=== PATIENT | female | born 2005 | race Caucasian/White ===

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

== ENCOUNTER 2023-02-17 16:49 | Emergency (ER) | payer BC ==
[2023-02-17] MEDS ORDERED: TYLENOL EXTRA STRENGTH 500 MG PO PRN (17:22)
[2023-02-17] MEDS ORDERED: TYLENOL EXTRA STRENGTH 500 MG ONE (17:25)
[2023-02-17 17:29] LABS: Appearance Clear (Clear); Bacteria Rare /HPF (None Seen); Bilirubin Negative (Negative); Blood Negative (Negative); Epithelial Cells Few /HPF (None Seen); Glucose, Urine Negative (Negative); Hyaline Casts NONE SEEN /LPF (0-2); Ketones Trace (Negative); Leukocyte Esterase Small (Negative); Nitrite Negative (Negative); Protein,Urine Dip 30 (Negative); RBC 0-2 /HPF (0-5); Specific Gravity 1.025 (1.005-1.030)
[2023-02-17 17:38] LABS: ADD URINE CULTURE? YES (NO)
[2023-02-17 17:45] LABS: Group A Strep NOT DETECTED (NEGATIVE)
--- NOTE | 2023-02-17 17:52 | ERPHSYRPT ---
- History of Present Illness Time Seen by Provider: 02/17/23 17:47 Source: patient Exam Limitations: no limitations Patient Subjective Stated Complaint: Fever Triage Nursing Assessment: Patient ambulated back to ED and transferred self to bed. Patient A+O X3. Patient's skin flushed, warm and dry. Patient complains of fever as high as 104.2 last night. Patient complains of fever, headache and sore throat for several days. Patient complains of head and throat pain 5/10. Patient is currently 7 weeks . Patient's throat noted to bed red with blisters noted. Physician History: Patient is a 18-year-old female currently 7 weeks presents to our ED with headache sore throat and fever x1 day. Patient took Tylenol today at 130. She dose 500 mg with some improvement. Patient rates her sore throat at 5 out of 10. No other symptomology. No abdominal pain. No pelvic pain. No vaginal discharge. No trauma. Symptoms are mild to moderate in intensity. No specific worsening improving factors. Patient voices no other complaints or concerns at this time. No neck pain no photophobia no meningeal signs Portions of this note were created with voice recognition technology. There may be grammatical, spelling, punctuation or sound alike errors Timing/Duration: today Severity: moderate Modifying Factors: Improves With: nothing Associated Symptoms: headaches Allergies/Adverse Reactions: amoxicillin Allergy (Verified 02/17/23 17:54) Home Medications: Vits W-Ca,Fe,FA(<1Mg) [] 1 each PO DAILY 04/08/21 [History] Hx Tetanus, Diphtheria Vaccination/Date Given: No Hx Influenza Vaccination/Date Given: No Hx Pneumococcal Vaccination/Date Given: No Immunizations Up to Date: Yes Travel Risk - International Travel Have you traveled outside of the country in past 3 weeks: No - Coronavirus Screening Are you exhibiting any of the following symptoms?: Yes Symptoms: Fever, Headaches/Body Aches/Fatigue Close contact with a COVID-19 positive Pt in past 14-21 Days: No - Vaccine Status Have you recieved a Covid-19 vaccination: Yes Front Elevator Operator: Unknown - Vaccination Dates Dates if Unknown: na - Review of Systems Constitutional: No Symptoms, No Fever, No Chills Eyes: No Symptoms Ears, Nose, & Throat: No Symptoms Respiratory: No Symptoms, No Cough, No Dyspnea Cardiac: No Symptoms, No Chest Pain, No Edema, No Syncope Abdominal/Gastrointestinal: No Symptoms, No Abdominal Pain, No Nausea, No Vomiting, No Diarrhea Genitourinary Symptoms: No Symptoms, No Dysuria Musculoskeletal: No Symptoms, No Back Pain, No Neck Pain Skin: No Symptoms, No Rash Neurological: No Symptoms, No Dizziness, No Focal Weakness, No Sensory Changes Psychological: No Symptoms Endocrine: No Symptoms Hematologic/Lymphatic: No Symptoms Immunological/Allergic: No Symptoms All Other Systems: Reviewed and Negative - Past Medical History Pertinent Past Medical History: Yes Neurological History: No Pertinent History ENT History: No Pertinent History Cardiac History: No Pertinent History Respiratory History: No Pertinent History Endocrine Medical History: No Pertinent History Musculoskeletal History: No Pertinent History GI Medical History: No Pertinent History History: No Pertinent History Psycho-Social History: No Pertinent History Female Reproductive Disorders: Other Other Medical History: 1 ovary--has a couple of cysts on it, other ovary disenegrated at 3 months old - Past Surgical History Past Surgical History: Yes Neuro Surgical History: No Pertinent History Cardiac: No Pertinent History Respiratory: No Pertinent History Gastrointestinal: No Pertinent History Genitourinary: No Pertinent History Musculoskeletal: No Pertinent History Female Surgical History: Other Other Surgical History: removed cyst on ovary as a baby - Social History Smoking Status: Never smoker Exposure to second hand smoke: No Drug Use: none Patient Lives Alone: No Significant Family History: no pertinent family hx - Female History Hx Last Menstrual Period: End december Hx Now: Yes Gestational Age: 7 weeks - Nursing Vital Signs Nursing Vital Signs: Initial Vital Signs Temperature 102.8 F 02/17/23 17:12 Pulse Rate 102 H 02/17/23 17:12 Respiratory Rate 17 02/17/23 17:12 Blood Pressure 98/76 02/17/23 17:12 O2 Sat by Pulse Oximetry 99 02/17/23 17:12 Pain Scale Pain Intensity 2 - Physical Exam General Appearance: no apparent distress, alert Eye Exam: PERRL/EOMI, eyes nml inspection Ears, Nose, Throat Exam: normal ENT inspection, TMs normal, moist mucous membranes, other (Erythematous oropharynx.) Neck Exam: normal inspection, non-tender, supple, full range of motion Respiratory Exam: normal breath sounds, lungs clear, No respiratory distress Cardiovascular Exam: regular rate/rhythm, normal heart sounds, normal peripheral pulses Gastrointestinal/Abdomen Exam: soft, normal bowel sounds, No tenderness, No mass Back Exam: normal inspection, normal range of motion, No CVA tenderness, No vertebral tenderness Extremity Exam: normal inspection, normal range of motion, pelvis stable Neurologic Exam: alert, oriented x 3, cooperative, normal mood/affect, nml cerebellar function, nml station & gait, sensation nml, No motor deficits Skin Exam: normal color, warm, dry, No rash Lymphatic Exam: No adenopathy SpO2 Interpretation: normal SpO2: 99 O2 Delivery: Room Air - Course Nursing assessment & vital signs reviewed: Yes Ordered Tests: Active Orders 24 hr Category Date Time Status CULTURE,URINE Stat Lab 02/17/23 17:07 Received UA W/RFX UR CULTURE Stat Lab 02/17/23 17:07 Completed Medication Summary Generic Name Dose Route Start Last Admin Trade Name Freq PRN Reason Stop Dose Admin Acetaminophen 1,000 mg 02/17/23 17:22 02/17/23 17:27 Acetaminophen 500 Mg Tablet PO 03/19/23 17:21 1,000 mg Q4H PRN PRN Administration HEADACHE Discontinued Medications Generic Name Dose Route Start Last Admin Trade Name Freq PRN Reason Stop Dose Admin Nitrofurantoin Macrocrystals 100 mg 02/17/23 19:35 02/17/23 19:39 Nitrofurantoin Macro 100 Mg Capsule PO 02/17/23 19:36 100 mg STAT ONE Administration Nitrofurantoin Macrocrystals Confirm 02/17/23 19:38 Nitrofurantoin Macro 100 Mg Capsule Administered 02/17/23 19:39 Dose 100 mg .ROUTE .[facility] Lab/Rad Data: Laboratory Results 02/17/23 02/17/23 Range/Units 17:10 17:07 Urine Color Yellow (Yellow) Urine Appearance Clear (Clear) Urine pH 7.0 (4.6-8.0) Ur Specific [place] 1.025 (1.005-1.030) Urine Protein 30 (Negative) Urine Glucose (UA) Negative (Negative) mg/dL Urine Ketones Trace A (Negative) Urine Blood Negative (Negative) Urine Nitrite Negative (Negative) Urine Bilirubin Negative (Negative) Urine Urobilinogen 1.0 A (0.2) mg/dL Ur Leukocyte Esterase Small A (Negative) U Hyaline Cast (Auto) NONE SEEN (0-2) /LPF Urine Microscopic RBC 0-2 (0-5) /HPF Urine Microscopic WBC 6-10 A (0-5) /HPF Ur Epithelial Cells Few (None Seen) /HPF Urine Bacteria Rare A (None Seen) /HPF Urine Culture Reflexed YES (NO) Influenza Type A Ag NEGATIVE (NEGATIVE) Influenza Type B Ag NEGATIVE (NEGATIVE) RSV (PCR) NEGATIVE (NEGATIVE) SARS-CoV-2 (PCR) NEGATIVE (NEGATIVE) Group A Strep Antibody NOT DETECTED (NEGATIVE) - Progress Progress: improved Progress Note: Patient a 18-year-old female presents emergency department for evaluation of a fever. Patient is 7 weeks . Patient has a sore throat. No nausea or vomiting. Patient has no complications or complaints regarding her . No abdominal pain or vaginal discharge. No back pain. Rapid strep negative. COVID flu influenza negative. Urinalysis reveals a urinary tract infection. Patient received a dose of Macrobid in our ED. I spoke with Dr. Greco patient's [facility] physician at 7:45 PM. agrees with plan of care and disposition. Patient agrees to contact her primary care physician and/or within 48 hours for reevaluation. She voices no other complaints or concerns at this time. A prescription for Macrobid was forwarded to patient's pharmacy. Portions of this note were created with voice recognition technology. There may be grammatical, spelling, punctuation or sound alike errors Complexity of problem addressed is moderate acute complicated No critical care time Complexity data reviewed and analyzed is extensive. Test ordered test reviewed and analyzed. Clinical correlation made between the findings and history and physical examination. Plan of care and management discussed with patient's [facility] physician Dr. Greco. Risk of complication and or risk of morbidity/mortality of patient management is moderate. A prescription for Macrobid was forwarded to patient's pharmacy. Patient will be discharged home. Vital stable. Time spent to discharge patient is approximately 15 minutes. Plan of care established for shared decision making. No social determinants of health present to impede follow-up. Patient voices no other complaints or concerns at this time. Patient sore throat and fever is likely a viral pharyngitis. Portions of this note were created with voice recognition technology. There may be grammatical, spelling, punctuation or sound alike errors 02/17/23 19:57 Counseled pt/family regarding: lab results, diagnosis, need for follow-up - Departure Departure Disposition: Home Clinical Impression: UTI (urinary tract infection), Sore throat (viral) Condition: Stable Critical Care Time: No Referrals: TERRENCE DRAPER SENIOR INSIGHT MANAGER [Primary Care Provider] - Follow up/PCP as directed Additional Instructions: Discharge/Care Plan LEROY MUNSON was seen on 02/17/23 in the Emergency Room. The patient was counseled regarding Diagnosis,Lab results, Imaging studies, need for follow up and when to return to the Emergency Room. Prescriptions given: Discharge Note I have spoken with the patient and/or caregivers. I have explained the patient's condition, diagnosis and treatment plan based on the information available to me at this time. I have answered the patient's and/or caregiver's questions and addressed any concerns. The patient and/or caregivers have as good understanding of the patient's diagnosis, condition and treatment plan as can be expected at this point. The vital signs have been stable. The patient's condition is stable and appropriate for discharge from the emergency department. The patient will pursue further outpatient evaluation with the primary care physician or other designated or consulting physician as outlined in the discharge instructions. The patient and/or caregivers are agreeable to this plan of care and follow-up instructions have been explained in detail. The patient and/or caregivers have received these instruction. The patient/and or caregivers are aware that any significant change in condition or worsening of symptoms should prompt an immediate return to this or the closest emergency department or call 911. Prescriptions: Nitrofurantoin Macro 100 mg [Macrobid 100MG Capsule] 100 mg PO BID 7 Days #14 cap
[2023-02-17 17:58] LABS: INFLUENZA A NEGATIVE (NEGATIVE); INFLUENZA B NEGATIVE (NEGATIVE); RESPIRATORY SYNCTIAL VIRUS NEGATIVE (NEGATIVE); SARS-CoV-2 Xpert Express NEGATIVE (NEGATIVE)
[2023-02-17] MEDS ORDERED: Macrobid 100MG Capsule PO ONE (19:35)
[2023-02-17] MEDS ORDERED: Macrobid 100MG Capsule ONE (19:38)
[2023-02-17 19:49] VITALS: BP 102/59; PULSE 84; RESP 18; TEMP 98.9
[2023-02-17 19:53] VITALS: O2SAT 99
== END 2023-02-17 20:02 | disposition home or self-care (01) ==
LOC: ED 16:49
DX: O23.41 Unspecified infection of urinary tract in pregnancy, first trimester (principal); N39.0 Urinary tract infection, site not specified; Z3A.01 Less than 8 weeks gestation of pregnancy; J02.9 Acute pharyngitis, unspecified; R51.9 Headache, unspecified; R50.9 Fever, unspecified
CPT/HCPCS: 0241U; 81001; 87086; 87651; 99283; A9270-GY

== ENCOUNTER 2025-04-03 16:59 | Emergency (ER) | payer BC ==
[2025-04-03 17:22] VITALS: RESP 14; TEMP 97
[2025-04-03 17:23] VITALS: O2SAT 98
[2025-04-03 17:46] LABS: Glucose, Urine Negative (Negative); Protein,Urine Dip Negative (Negative); RBC 0-2 /HPF (0-5)
--- NOTE | 2025-04-03 17:51 | ERPHSYRPT ---
- History of Present Illness Time Seen by Provider: 04/03/25 17:00 Source: patient Exam Limitations: no limitations Patient Subjective Stated Complaint: patient states she had a D&C done january 28, x couple weeks patient states feet and arms have been going numb, patient states she thought maybe she has uti Triage Nursing Assessment: patient presents to ed via private vehicle, patient able to ambulate into ed without complication, alert and oriented x 4, skin p/w/d, patient denies sob/chest pain, patient states she has had decreased urine output here recently, patient's urine dark pat and cloudy, denies abdominal pain/tenderness, patient denies blurry vision/lightheadedness at this time Physician History: Patient comes emergency room due to urinary symptoms going on for the past couple weeks. Denies any back pain but complains ofUrinary symptomsDysuria and increased urination and frequency. Denies any fever chills denies any Back pain no vomiting no diarrhea Timing/Duration: today Activites at Onset: none Severity of Pain-Max: none Severity of Pain-Current: none Prior abdominal problems: UTI Modifying Factors: Improves With: urinating. Worsens With: vomiting Associated Symptoms: dysuria, polyuria, urinary frequency, No nausea, No vomiting Allergies/Adverse Reactions: amoxicillin Allergy (Verified 04/03/25 17:15) Hx Tetanus, Diphtheria Vaccination/Date Given: Yes Hx Influenza Vaccination/Date Given: Yes Hx Pneumococcal Vaccination/Date Given: No Travel Risk - International Travel Have you traveled outside of the country in past 3 weeks: No - Emerging Infectious Disease Are you exhibiting symptoms associated with any current EIDs: No Symptoms: Abdominal Pain - Review of Systems Constitutional: No Fever, No Chills Respiratory: No Cough, No Dyspnea Cardiac: No Chest Pain, No Edema, No Syncope Genitourinary Symptoms: Frequency, Urgency - Past Medical History Pertinent Past Medical History: Yes Neurological History: No Pertinent History ENT History: No Pertinent History Cardiac History: No Pertinent History Respiratory History: No Pertinent History Endocrine Medical History: No Pertinent History Musculoskeletal History: No Pertinent History GI Medical History: No Pertinent History History: No Pertinent History Psycho-Social History: Anxiety, Depression Female Reproductive Disorders: Other Other Medical History: 1 ovary--has a couple of cysts on it, other ovary disenegrated at 3 months old - Past Surgical History Past Surgical History: Yes Neuro Surgical History: No Pertinent History Cardiac: No Pertinent History Respiratory: No Pertinent History Gastrointestinal: No Pertinent History Genitourinary: No Pertinent History Musculoskeletal: No Pertinent History Female Surgical History: Dilation & Curettage, Other Other Surgical History: removed cyst on ovary as a baby Significant Family History: no pertinent family hx - Female History Hx Last Menstrual Period: 12/11/24 Hx Now: No - Social History Smoking Status: Never smoker Exposure to second hand smoke: No Drug Use: none - Social Determinants of Health Will the patient participate in the screening: Yes Do you worry about a steady place to live?: No Do you have any problems with any of the following?: No known problems In the past 12 months,have you had to go without utilities?: No Transportation Issues: No Has anyone in your support network made you feel unsafe?: No Have you or anyone in your house had to go w/o enough food: No - Nursing Vital Signs Nursing Vital Signs: Initial Vital Signs Temperature 97 F 04/03/25 16:59 Pulse Rate 68 04/03/25 16:59 Respiratory Rate 14 04/03/25 16:59 Blood Pressure 133/78 04/03/25 16:59 O2 Sat by Pulse Oximetry 97 04/03/25 16:59 Pain Scale Pain Intensity 0 - Physical Exam General Appearance: no apparent distress, alert Respiratory Exam: normal breath sounds, lungs clear, No respiratory distress Cardiovascular Exam: regular rate/rhythm, normal heart sounds, normal peripheral pulses Gastrointestinal/Abdomen Exam: soft, No tenderness, No mass Back Exam: normal inspection, normal range of motion, No CVA tenderness, No vertebral tenderness Neurologic Exam: alert, oriented x 3, cooperative, field reporter II-XII nml as tested, normal mood/affect, sensation nml, No motor deficits SpO2: 98 Ordered Tests: Active Orders 24 hr Category Date Time Status UA W/RFX UR CULTURE Stat Lab 04/03/25 17:26 Completed Lab/Rad Data: Laboratory Results 04/03/25 Range/Units 17:26 Urine Color Yellow (Yellow) Urine Appearance Turbid A (Clear) Urine pH 8.0 (4.6-8.0) Ur Specific [place] 1.020 (1.005-1.030) Urine Protein Negative (Negative) Urine Glucose (UA) Negative (Negative) mg/dL Urine Ketones Negative (Negative) Urine Blood Negative (Negative) Urine Nitrite Negative (Negative) Urine Bilirubin Negative (Negative) Urine Urobilinogen 1.0 A (0.2) mg/dL Ur Leukocyte Esterase Small A (Negative) U Hyaline Cast (Auto) NONE SEEN (0-2) /LPF Urine Microscopic RBC 0-2 (0-5) /HPF Urine Microscopic WBC 3-5 (0-5) /HPF Ur Epithelial Cells Few (None Seen) /HPF Urine Bacteria None Seen (None Seen) /HPF Urine Culture Reflexed NO (NO) - Progress Progress Note: 04/03/25 17:57 Patient tested negative for UTI on a UA will be discharged advised follow-up with primary care for further evaluation and management. Also advised follow-up with her surgeon - Departure Departure Disposition: Home Clinical Impression: Dysuria Condition: Good Critical Care Time: No Referrals: TERRENCE DRAPER NP [Primary Care Provider, UNKNOWN] - Follow up/PCP as directed Instructions: Urinary tract infection in adults - ED discharge instructions
[2025-04-03 18:07] VITALS: BP 104/69; PULSE 78
== END 2025-04-03 18:07 | disposition home or self-care (01) ==
LOC: ED 16:59
DX: R30.0 Dysuria (principal); R35.0 Frequency of micturition

== ENCOUNTER 2025-04-18 12:42 | Emergency (ER) | payer BC, OTHER ==
[2025-04-18 12:59] VITALS: TEMP 97.9
[2025-04-18 13:47] LABS: BASOPHIL % 0.5 % (0.1-1.2); Basophil (Absolute #) 0.02 x10^3/uL (0.01-0.08); Eosinophil (Absolute #) 0.05 x10^3/uL (0.04-0.36); Hematocrit 36.2 % (34.1-44.9); Hemoglobin 12.1 g/dL (11.2-15.7); IMMATURE GRAN # 0.01 x10^3u/L (0.001-0.031); IMMATURE GRAN % 0.3 % (0.001-0.429); Lymphocyte (Absolute #) 1.12 x10^3/uL (1.18-3.74); Mean Corpuscular Hemoglobin 29.7 pg (25.6-32.2); Mean Corpuscular Hgb Concent. 33.4 g/dL (32.2-35.5); Monocyte (Absolute #) 0.41 x10^3/uL (0.24-0.86); NUCLEATED RBC # 0.00 x10^3u/L (0.00-0.012); NUCLEATED RBC % 0.0 % (0.00-0.2); Platelet Count 139 x10^3/uL (182-369); Red Blood Count 4.07 x10^6/uL (3.93-5.22); White Blood Count 4.0 x10^3/uL (3.98-10.04)
[2025-04-18 14:03] LABS: Calcium 8.6 mg/dL (8.4-10.2); Carbon Dioxide 21.0 mmol/L (22-30); Creatinine 1 0.57 mg/dL (0.52-1.04); EST GLOMERULAR FILTRATION RATE 131.7 ML/MIN; Glucose 99.0 mg/dL (74-106); HCG SERUM TEST NEGATIVE (NEGATIVE); INR 1.01 (0.8-3.0); PROTIME 11.3 SECONDS (9.4-12.5); PTT 24.4 SECONDS (25.1-36.5); Potassium 3.6 mmol/L (3.5-5.1); SGOT/AST 21.0 U/L (14-36); SGPT/ALT 14.0 U/L (0-35); Total Protein 7.4 g/dL (6.3-8.2)
--- NOTE | 2025-04-18 15:13 | ERPHSYRPT ---
- History of Present Illness Time Seen by Provider: 04/18/25 13:07 Source: patient Patient Subjective Stated Complaint: pt reports having a D&C in January and this is her first period since then and she started it a couple of days ago and it was very light and then last night she reports going through 20-30 tampons and pads throughout the night, pt called Dr. Greco and he told her to come to the ER for an US Triage Nursing Assessment: Pt brought self to the ER, vitals wnl, rates pain as 4/10, pulses normal skin n/w/d, denies chest pain, no SOB, reports changing tampon approx every 20 minutes Physician History: This is a 20-year-old female who states that she began having very heavy vaginal bleeding last night soaking through 6 pads since this morning. No shortness of breath, dizziness, weakness. Patient denies any trauma or injury. No recent . Patient denies any similar history in the past. No chest pain, shortness of breath, abdominal pain, flank pain, dysuria, hematuria. Patient sent by her OB Dr. Greco Allergies/Adverse Reactions: amoxicillin Allergy (Verified 04/18/25 12:59) Hx Tetanus, Diphtheria Vaccination/Date Given: Yes Hx Influenza Vaccination/Date Given: Yes Hx Pneumococcal Vaccination/Date Given: No Travel Risk - International Travel Have you traveled outside of the country in past 3 weeks: No - Emerging Infectious Disease Are you exhibiting symptoms associated with any current EIDs: No Symptoms: Abdominal Pain - Review of Systems All Other Systems: Reviewed and Negative (As per HPI otherwise negative) - Past Medical History Pertinent Past Medical History: Yes Neurological History: No Pertinent History ENT History: No Pertinent History Cardiac History: No Pertinent History Respiratory History: No Pertinent History Endocrine Medical History: No Pertinent History Musculoskeletal History: No Pertinent History GI Medical History: No Pertinent History History: No Pertinent History Psycho-Social History: Anxiety, Depression Female Reproductive Disorders: Other Other Medical History: 1 ovary--has a couple of cysts on it, other ovary disenegrated at 3 months old - Past Surgical History Past Surgical History: Yes Neuro Surgical History: No Pertinent History Cardiac: No Pertinent History Respiratory: No Pertinent History Gastrointestinal: No Pertinent History Genitourinary: No Pertinent History Musculoskeletal: No Pertinent History Female Surgical History: Dilation & Curettage, Other Other Surgical History: removed cyst on ovary as a baby Significant Family History: no pertinent family hx - Female History Hx Last Menstrual Period: now Hx Now: No - Social History Smoking Status: Never smoker Exposure to second hand smoke: No Drug Use: none - Social Determinants of Health Will the patient participate in the screening: Yes Do you worry about a steady place to live?: No Do you have any problems with any of the following?: No known problems In the past 12 months,have you had to go without utilities?: No Transportation Issues: No Has anyone in your support network made you feel unsafe?: No Have you or anyone in your house had to go w/o enough food: No - Nursing Vital Signs Nursing Vital Signs: Initial Vital Signs Temperature 97.9 F 04/18/25 12:53 Pulse Rate 72 04/18/25 12:53 Blood Pressure 117/75 04/18/25 12:53 O2 Sat by Pulse Oximetry 100 04/18/25 12:53 Pain Scale Pain Intensity 0 - Physical Exam SpO2: 98 Comments: 04/18/25 15:08 General: Well-nourished well-developed. No apparent distress. HEENT: Normocephalic atraumatic no obvious facial or neck deformity or injury. Neck: Supple. No deformity or mass noted. CV: RRR NL Perfusion. No edema Resp: No Respiratory distress or adventitious breath sounds Abd: ND SNT MSK: No deformity or TTP Neuro: Alert and [place] x4. No gross focal neurologic changes Psych: No SI, HI or grave disability Ordered Tests: Active Orders 24 hr Category Date Time Status CBC W DIFF Stat Lab 04/18/25 13:40 Completed CMP Stat Lab 04/18/25 13:40 Completed HCG QUALITATIVE, SERUM Stat Lab 04/18/25 13:40 Completed PT INR [PROTIME WITH INR] Stat Lab 04/18/25 13:40 Completed PTT Stat Lab 04/18/25 13:40 Completed Lab/Rad Data: Laboratory Result Diagrams 04/18/25 13:40 04/18/25 13:40 Laboratory Results 04/18/25 04/18/25 04/18/25 Range/Units 13:40 13:40 13:40 WBC (3.98-10.04) x10^3/uL RBC (3.93-5.22) x10^6/uL Hgb (11.2-15.7) g/dL Hct (34.1-44.9) % MCV (79.4-94.8) fL MCH (25.6-32.2) pg MCHC (32.2-35.5) g/dL RDW (11.7-14.4) % Plt Count (182-369) x10^3/uL MPV (9.4-12.3) fL Gran % (34.0-71.1) % Immature Gran % (Auto) (0.001-0.429) % Nucleat RBC Rel Count (0.00-0.2) % Eos # (Auto) (0.04-0.36) x10^3/uL Immature Gran # (Auto) (0.001-0.031) x10^3u/L Absolute Lymphs (auto) (1.18-3.74) x10^3/uL Absolute Monos (auto) (0.24-0.86) x10^3/uL Absolute Nucleated RBC (0.00-0.012) x10^3u/L Lymphocytes % (19.3-51.7) % Monocytes % (4.7-12.5) % Eosinophils % (0.7-5.8) % Basophils % (0.1-1.2) % Absolute Granulocytes (1.56-6.13) x10^3/uL Basophils # (0.01-0.08) x10^3/uL PT 11.3 (9.4-12.5) SECONDS INR 1.01 (0.8-3.0) APTT 24.4 L (25.1-36.5) SECONDS Sodium 136 (135-145) mmol/L Potassium 3.6 (3.5-5.1) mmol/L Chloride 106 (98-107) mmol/L Carbon Dioxide 21 L (22-30) mmol/L Anion Gap 12.6 (5-15) MEQ/L BUN 10 (7-17) mg/dL Creatinine 0.57 (0.52-1.04) mg/dL Estimated GFR 131.7 ML/MIN Glucose 99 (74-106) mg/dL Calcium 8.6 (8.4-10.2) mg/dL Total Bilirubin 0.50 (0.2-1.3) mg/dL AST 21 (14-36) U/L ALT 14 (0-35) U/L Alkaline Phosphatase 42 (38-126) U/L Serum Total Protein 7.4 (6.3-8.2) g/dL Albumin 4.4 (3.5-5.0) g/dL Serum HCG, Qual NEGATIVE (NEGATIVE) 04/18/25 Range/Units 13:40 WBC 4.0 (3.98-10.04) x10^3/uL RBC 4.07 (3.93-5.22) x10^6/uL Hgb 12.1 (11.2-15.7) g/dL Hct 36.2 (34.1-44.9) % MCV 88.9 (79.4-94.8) fL MCH 29.7 (25.6-32.2) pg MCHC 33.4 (32.2-35.5) g/dL RDW 12.8 (11.7-14.4) % Plt Count 139 L (182-369) x10^3/uL MPV 12.9 H (9.4-12.3) fL Gran % 59.6 (34.0-71.1) % Immature Gran % (Auto) 0.3 (0.001-0.429) % Nucleat RBC Rel Count 0.0 (0.00-0.2) % Eos # (Auto) 0.05 (0.04-0.36) x10^3/uL Immature Gran # (Auto) 0.01 (0.001-0.031) x10^3u/L Absolute Lymphs (auto) 1.12 L (1.18-3.74) x10^3/uL Absolute Monos (auto) 0.41 (0.24-0.86) x10^3/uL Absolute Nucleated RBC 0.00 (0.00-0.012) x10^3u/L Lymphocytes % 28.0 (19.3-51.7) % Monocytes % 10.3 (4.7-12.5) % Eosinophils % 1.3 (0.7-5.8) % Basophils % 0.5 (0.1-1.2) % Absolute Granulocytes 2.39 (1.56-6.13) x10^3/uL Basophils # 0.02 (0.01-0.08) x10^3/uL PT (9.4-12.5) SECONDS INR (0.8-3.0) APTT (25.1-36.5) SECONDS Sodium (135-145) mmol/L Potassium (3.5-5.1) mmol/L Chloride (98-107) mmol/L Carbon Dioxide (22-30) mmol/L Anion Gap (5-15) MEQ/L BUN (7-17) mg/dL Creatinine (0.52-1.04) mg/dL Estimated GFR ML/MIN Glucose (74-106) mg/dL Calcium (8.4-10.2) mg/dL Total Bilirubin (0.2-1.3) mg/dL AST (14-36) U/L ALT (0-35) U/L Alkaline Phosphatase (38-126) U/L Serum Total Protein (6.3-8.2) g/dL Albumin (3.5-5.0) g/dL Serum HCG, Qual (NEGATIVE) - Progress Progress Note: 04/18/25 15:10 Discussed with patient's SSRS REPORT DEVELOPER Dr. Greco who states patient well-known to him. She had amenorrhea and was being worked up for dysfunctional uterine bleeding in March. She had laboratory studies and outpatient ultrasound which she is failed to do and not showing up for her appointments. He recommends TXA 1300 mg 3 times daily x 5 days. First dose will be given in the emergency department. He recommends she follow-up with her ultrasound as outpatient. He recommends patient to follow-up with himself as outpatient. The patient's condition was discussed with themselves and/or family members in great detail. Precautions are given and need to return or call 911 immediately for any changes or worsening are discussed. Instructions on patient's condition and noting that conditions can change or worsen and that diagnosis are presumptive and can evolve are discussed. All questions were answered. All concerns addressed at this time - Departure Departure Disposition: Home Clinical Impression: Dysfunctional uterine bleeding Condition: Good Critical Care Time: No Referrals: BHAVNA GRECO DO [Primary Care Provider, OBSTETRICS-GYNECOLOGY] - Follow up with PCP 1 day Referral Note: Follow-up in the morning. Get your ultrasound scheduled and completed. Get your lab work ordered by Dr. Greco completed as well Instructions: Heavy Periods (DC) Additional Instructions: You have been evaluated for an emergency medical condition. At this time, given the current history and events presented, the examination conducted and any possible testing you may have had, you have been given a presumptive diagnosis based on the current information is obtained. Your discharge diagnosis is presumptive and not necessarily definitive. Medical conditions present in various stages very often without all the symptoms or findings described in medical literature. Other symptoms, concerns or conditions may arise and your diagnoses may evolve or change and/or your condition could potentially worsen after the time of disposition or discharge. You have been given a presumptive diagnosis and your condition appears to be stable, but your medical issues can change or worsen. If there is worsening of your condition including difficulty breathing, swallowing, speaking, chest pain or pressure, intractable vomiting, worsening or changing mental status, numbness, tingling or weakness of your body or arms or legs, thoughts or plans of harming yourself or others, or any other concerns, call 911 and/or return immediately to the closest emergency department. It is important you follow-up with your doctor on the next business day. Call your doctor, or the referral provided if you do not have a doctor, when they open to schedule a follow-up appointment in the next 1 or latest 2 days. Please refer to the attached sheet. If you do not have primary care doctor, you can call the [facility] referral line at [phone]. Return immediately if your symptoms worsen or if you are unable to obtain further care. My team and I thank you for choosing the [facility] emergency healthcare needs. We wish you a speedy recovery. Very respectfully, Dr. Ebony Forrest M.D. [place] [employer] Board-certified Emergency Physician Prescriptions: Tranexamic Acid 1,300 mg PO TID 5 Days tablet Tranexamic Acid 1,300 mg PO TID #30 tablet
[2025-04-18] MEDS: TRANEXAMIC ACID PO STA (15:26)
[2025-04-18 15:31] VITALS: BP 116/70; PULSE 62; RESP 14; O2SAT 100
== END 2025-04-18 15:44 | disposition home or self-care (01) ==
LOC: ED 12:42
DX: N93.8 Other specified abnormal uterine and vaginal bleeding (principal); Z79.899 Other long term (current) drug therapy